=== PATIENT | female | born 1945 ===

== ENCOUNTER 2022-06-25 19:44 | Emergency (ER) | payer OTHER ==
[~2022-06-25] VITALS: Ht 152.4 cm; Wt 81.8 kg
[2022-06-25] MEDS ORDERED: ONDANSETRON ODT 4 MG TAB PO ONE (20:15)
[2022-06-25] MEDS ORDERED: MECLIZINE HCL 25 MG TAB PO ONE (20:15)
[2022-06-25 21:08] LABS: Basophils # (auto) 0 10 ^3/uL (0-0.2); Basophils % (auto) 0.6 % (0.0-2.0); Eosinophils # (auto) 0.1 10 ^3/uL (0-0.8); Eosinophils % (auto) 1.6 % (0.0-7.0); Hematocrit 39.2 % (36.0-46.0); Hemoglobin 13.2 g/dL (12.2-16.2); Lymphocytes % (auto) 33.3 % (10.0-50.0); Mean Corpuscular Hemoglobin 29.8 pg (28.0-32.0); Mean Corpuscular Hgb Conc. 33.6 g/dL (32.0-36.0); Mean Corpuscular Volume 88.9 fL (80.0-100.0); Monocytes # (auto) 0.5 10 ^3/uL (0-1.3); Monocytes % (auto) 8.6 % (0.0-12.0); Neutrophils # (auto) 3.4 10 ^3/uL (1.6-8.6); Neutrophils % (auto) 55.9 % (37.0-80.0); Nucleated Red Blood Cells % 0.1 %; Red Blood Cells 4.41 10^6/uL (4.0-5.20)
[2022-06-25 21:15] LABS: Albumin 3.8 g/dL (3.4-5.0); Calcium 9.5 mg/dL (8.5-10.1); Potassium 3.8 mmol/L (3.5-5.1)
[2022-06-25 21:16] LABS: Urine Bacteria FEW /hpf (None Seen); Urine Blood 1+ /uL (Negative); Urine Mucus FEW (None Seen); Urine Specific Gravity 1.008 (1.001-1.035); Urine WBC 4 /hpf (0 - 5)
[2022-06-25 21:18] LABS: Bilirubin, Total 0.5 mg/dL (0.2-1.0); Total Protein 7.8 g/dL (6.4-8.2)
[2022-06-25 22:04] VITALS: BP 155/49
[2022-06-25] MEDS ORDERED: NITR-87 PO (22:38)
== END 2022-06-25 22:59 | disposition home or self-care (01) ==
LOC: ER 19:44
DX: I16.1 Hypertensive emergency (principal); I10 Essential (primary) hypertension; N39.0 Urinary tract infection, site not specified; R42 Dizziness and giddiness; E66.01 Morbid (severe) obesity due to excess calories; Z88.6 Allergy status to analgesic agent; Z68.35 Body mass index [BMI] 35.0-35.9, adult; Z20.822 Contact with and (suspected) exposure to COVID-19
CPT/HCPCS: 36415; 70450; 80053; 81001; 82962; 83880; 84484; 85025; 87426; 93005; 99285; J8597; Q0162